=== PATIENT | female | born 1990 | race Caucasian/White ===

== ENCOUNTER → 2017-07-19 | Outpatient (CLI) | payer SELFPAY ==
--- NOTE | 2017-07-19 13:33 | Diagnostic Imaging Report ---
PROCEDURE: US PELVIC (NON OB) TECHNIQUE: Multiple real-time grayscale images were obtained over the pelvis in various projections transabdominally. INDICATION: Irregular periods There are no prior studies available for comparison. The uterus is nongravid and not enlarged measuring 9.1 x 3.9 x 3.0 CM. The endometrial lining is not thickened measuring 5-6 MM. There is no focal mass involving the uterus to suggest a fibroid. Both ovaries were identified. There is good blood flow to each ovary and there is no sign of torsion. There may be a few subcentimeter follicles on each ovary. There is no solid pelvic mass or free fluid collection evident. IMPRESSION: There is no acute pelvic abnormality evident. Dictated by: Dictated on workstation # [id number]
== END ==
LOC: RAD 11:13
PROVIDERS: ATTEND Nurse Practitioner Family
DX: N92.6 Irregular menstruation, unspecified (principal)
CPT/HCPCS: 76856